=== PATIENT | female | born 1985 | race Two or more races ===

== ENCOUNTER → 2016-04-13 | Outpatient (CLI) | payer MEDICAID | END | disposition home or self-care (01) | LOC: LAB 08:21 | PROVIDERS: ATTEND Obstetrics & Gynecology | DX: O99.810 Abnormal glucose complicating pregnancy (principal); Z34.80 Encounter for supervision of other normal pregnancy, unspecified trimester | CPT/HCPCS: 36415; 82951 ==

== ENCOUNTER → 2016-04-21 | Outpatient (CLI) | payer MEDICAID ==
[2016-04-21 12:26] LABS: Basophils # (auto) 0 uL; Basophils % (auto) 0.3 % (0.0-2.0); Eosinophils # (auto) 0 uL; Eosinophils % (auto) 0.4 % (0.0-7.0); Hemoglobin 13.4 g/dL (12.2-16.2); Lymphocytes # (auto) 1.9 uL; Lymphocytes % (auto) 27.7 % (10.0-50.0); Mean Corpuscular Hemoglobin 30.3 pg (28.0-32.0); Mean Corpuscular Hgb Conc. 33.4 g/dL (32.0-36.0); Mean Corpuscular Volume 90.8 fL (80.0-100.0); Mean Platelet Volume 9.1 fL (7.4-10.4); Monocytes # (auto) 0.4 uL; Monocytes % (auto) 5.7 % (0.0-12.0); Neutrophils # (auto) 4.6 uL; Neutrophils % (auto) 65.9 % (37.0-80.0); Platelet Count (auto) 226 10^3/uL (140-450); Red Cell Distribution Width 13.8 % (11.6-16.0)
== END | disposition home or self-care (01) ==
LOC: LAB 11:58
PROVIDERS: ATTEND Obstetrics & Gynecology
DX: Z34.80 Encounter for supervision of other normal pregnancy, unspecified trimester (principal)
CPT/HCPCS: 36415; 83036; 85025; 85049

== ENCOUNTER 2016-05-06 14:45 | Observation (INO) | payer MEDICAID ==
[~2016-05-06] VITALS: Ht 157.5 cm; Wt 95.3 kg
[2016-05-06] MEDS ORDERED: TERBUTALINE SULFATE 1 MG/ML 1ML VIAL SC SCH (15:00)
[2016-05-06] MEDS ORDERED: BETAMETHASONE ACET (6MG/ML) 5ML VIAL IM SCH (15:30)
== END 2016-05-06 17:25 | disposition home or self-care (01) | DRG 563 ==
LOC: LDRP 14:45
PROVIDERS: ADMIT Obstetrics & Gynecology; ATTEND Obstetrics & Gynecology
DX: O60.00 Preterm labor without delivery, unspecified trimester (principal); Z3A.00 Weeks of gestation of pregnancy not specified
CPT/HCPCS: 59025; 81002; 96372; G0378; J0702; J3105

== ENCOUNTER 2016-05-07 15:00 | Observation (INO) | payer MEDICAID ==
[2016-05-07] MEDS ORDERED: BETAMETHASONE ACET (6MG/ML) 5ML VIAL IM ONE (15:30)
== END 2016-05-07 16:40 | disposition home or self-care (01) | DRG 566 ==
LOC: LDRP 15:00
PROVIDERS: ADMIT Obstetrics & Gynecology; ATTEND Obstetrics & Gynecology
DX: O24.410 Gestational diabetes mellitus in pregnancy, diet controlled (principal); Z3A.29 29 weeks gestation of pregnancy
CPT/HCPCS: 59025; 81002; 82962; 96372; G0378; J0702

== ENCOUNTER 2016-05-10 14:15 | Observation (INO) | payer MEDICAID | END 2016-05-10 15:30 | disposition home or self-care (01) | DRG 566 | LOC: LDRP 14:15 | PROVIDERS: ADMIT Specialist; ATTEND Specialist | DX: O13.3 Gestational [pregnancy-induced] hypertension without significant proteinuria, third trimester (principal); O24.410 Gestational diabetes mellitus in pregnancy, diet controlled; Z3A.30 30 weeks gestation of pregnancy | CPT/HCPCS: G0378 ==

== ENCOUNTER 2016-05-13 12:20 | Observation (INO) | payer MEDICAID ==
[2016-05-13 14:07] LABS: Urine Bilirubin Negative (Negative); Urine Color Yellow (Yellow); Urine Glucose Normal (Normal); Urine Ketone Negative (Negative); Urine Mucus FEW (None Seen); Urine Nitrite Negative (Negative); Urine RBC 3 /hpf (0 - 4); Urine Squamous Epithelial Cell MOD /hpf (<5); Urine pH 6.5 (5.0-8.0)
[2016-05-13 14:08] LABS: Urine Blood 1+ /uL (Negative)
== END 2016-05-13 13:24 | disposition home or self-care (01) | DRG 563 ==
LOC: LDRP 12:20
PROVIDERS: ADMIT Obstetrics & Gynecology; ATTEND Obstetrics & Gynecology
DX: O60.03 Preterm labor without delivery, third trimester (principal); Z3A.30 30 weeks gestation of pregnancy
CPT/HCPCS: 59025; 81001; 81002; G0378

== ENCOUNTER 2016-05-17 12:30 | Observation (INO) | payer MEDICAID | END 2016-05-17 13:50 | disposition home or self-care (01) | DRG 566 | LOC: LDRP 12:30 | PROVIDERS: ADMIT Specialist; ATTEND Specialist | DX: O24.410 Gestational diabetes mellitus in pregnancy, diet controlled (principal); Z3A.33 33 weeks gestation of pregnancy | CPT/HCPCS: 59025; 81002; G0378 ==

== ENCOUNTER 2016-05-20 11:55 | Observation (INO) | payer MEDICAID | END 2016-05-20 13:30 | disposition home or self-care (01) | DRG 566 | LOC: LDRP 11:55 | PROVIDERS: ADMIT Obstetrics & Gynecology; ATTEND Obstetrics & Gynecology | DX: O26.893 Other specified pregnancy related conditions, third trimester (principal); O62.9 Abnormality of forces of labor, unspecified; M54.9 Dorsalgia, unspecified; Z3A.31 31 weeks gestation of pregnancy | CPT/HCPCS: 59025; 81002; G0378 ==

== ENCOUNTER 2016-05-24 12:00 | Observation (INO) | payer MEDICAID | END 2016-05-24 12:50 | disposition home or self-care (01) | DRG 566 | LOC: LDRP 12:00 | PROVIDERS: ADMIT Specialist; ATTEND Specialist | DX: O24.419 Gestational diabetes mellitus in pregnancy, unspecified control (principal); O60.03 Preterm labor without delivery, third trimester; Z3A.32 32 weeks gestation of pregnancy | CPT/HCPCS: 59025; 81002; G0378 ==

== ENCOUNTER 2016-05-27 12:10 | Observation (INO) | payer MEDICAID | END 2016-05-27 13:10 | disposition home or self-care (01) | DRG 566 | LOC: LDRP 12:10 | PROVIDERS: ADMIT Specialist; ATTEND Specialist | DX: O24.419 Gestational diabetes mellitus in pregnancy, unspecified control (principal); O60.03 Preterm labor without delivery, third trimester; Z3A.32 32 weeks gestation of pregnancy | CPT/HCPCS: 59025; 81002; 82962; G0378 ==

== ENCOUNTER 2016-05-31 12:05 | Observation (INO) | payer MEDICAID | END 2016-05-31 13:45 | disposition home or self-care (01) | DRG 566 | LOC: LDRP 12:05 | PROVIDERS: ADMIT Specialist; ATTEND Specialist | DX: O36.8130 Decreased fetal movements, third trimester, not applicable or unspecified (principal); O24.419 Gestational diabetes mellitus in pregnancy, unspecified control; Z3A.33 33 weeks gestation of pregnancy | CPT/HCPCS: 59025; 76818; 81002; 82962; G0378 ==

== ENCOUNTER 2016-06-04 13:05 | Observation (INO) | payer MEDICAID | END 2016-06-04 14:10 | disposition home or self-care (01) | DRG 566 | LOC: LDRP 13:05 | PROVIDERS: ADMIT Obstetrics & Gynecology; ATTEND Obstetrics & Gynecology | DX: O76 Abnormality in fetal heart rate and rhythm complicating labor and delivery (principal); Z3A.33 33 weeks gestation of pregnancy | CPT/HCPCS: 59025; 76818; 81002; G0378 ==

== ENCOUNTER 2016-06-08 10:20 | Observation (INO) | payer MEDICAID ==
[~2016-06-08] VITALS: Ht 157.5 cm; Wt 97.5 kg
[2016-06-08] MEDS ORDERED: NIF10C PO (10:38)
[2016-06-08] MEDS ORDERED: PREN1TAB30 PO (10:41)
== END 2016-06-08 11:45 | disposition home or self-care (01) | DRG 566 ==
LOC: LDRP 10:20
PROVIDERS: ADMIT Obstetrics & Gynecology; ATTEND Obstetrics & Gynecology
DX: O24.419 Gestational diabetes mellitus in pregnancy, unspecified control (principal); O40.3XX0 Polyhydramnios, third trimester, not applicable or unspecified; O62.9 Abnormality of forces of labor, unspecified; Z3A.34 34 weeks gestation of pregnancy
CPT/HCPCS: 59025; 76818; 81002; 82962; G0378

== ENCOUNTER 2016-06-11 12:23 | Observation (INO) | payer MEDICAID ==
[~2016-06-11 12:23] MED LIST: NIF10C PO; PREN1TAB30 PO
== END 2016-06-11 14:55 | disposition home or self-care (01) | DRG 566 ==
LOC: LDRP 12:23
PROVIDERS: ADMIT Obstetrics & Gynecology; ATTEND Obstetrics & Gynecology
DX: O26.893 Other specified pregnancy related conditions, third trimester (principal); O24.419 Gestational diabetes mellitus in pregnancy, unspecified control; Z3A.34 34 weeks gestation of pregnancy
CPT/HCPCS: 59025; 76818; 81002; G0378

== ENCOUNTER 2016-06-14 12:15 | Observation (INO) | payer MEDICAID | END 2016-06-14 13:35 | disposition home or self-care (01) | DRG 566 | LOC: LDRP 12:15 | PROVIDERS: ADMIT Obstetrics & Gynecology; ATTEND Obstetrics & Gynecology | DX: O24.419 Gestational diabetes mellitus in pregnancy, unspecified control (principal); O60.03 Preterm labor without delivery, third trimester; O40.3XX0 Polyhydramnios, third trimester, not applicable or unspecified; O62.9 Abnormality of forces of labor, unspecified; Z3A.35 35 weeks gestation of pregnancy | CPT/HCPCS: 76818; 82962; G0378; 59025; 81002 ==

== ENCOUNTER 2016-06-17 15:10 | Observation (INO) | payer MEDICAID | END 2016-06-17 17:00 | disposition home or self-care (01) | DRG 566 | LOC: LDRP 15:10 | PROVIDERS: ADMIT Obstetrics & Gynecology; ATTEND Obstetrics & Gynecology | DX: O24.419 Gestational diabetes mellitus in pregnancy, unspecified control (principal); O60.03 Preterm labor without delivery, third trimester; Z3A.35 35 weeks gestation of pregnancy | CPT/HCPCS: 59025; 76818; 81002; G0378 ==

== ENCOUNTER → 2016-06-18 | Outpatient (CLI) | payer MEDICAID ==
[2016-06-18 13:44] LABS: Basophils # (auto) 0 uL; Basophils % (auto) 0.3 % (0.0-2.0); Eosinophils # (auto) 0 uL; Eosinophils % (auto) 0.3 % (0.0-7.0); Hematocrit 37.5 % (36.0-46.0); Hemoglobin 12.8 g/dL (12.2-16.2); Lymphocytes # (auto) 1.7 uL; Lymphocytes % (auto) 28.3 % (10.0-50.0); Mean Corpuscular Hemoglobin 31.1 pg (28.0-32.0); Mean Corpuscular Hgb Conc. 34.1 g/dL (32.0-36.0); Mean Corpuscular Volume 91.1 fL (80.0-100.0); Mean Platelet Volume 9.5 fL (7.4-10.4); Monocytes # (auto) 0.4 uL; Monocytes % (auto) 6.9 % (0.0-12.0); Neutrophils % (auto) 64.2 % (37.0-80.0); Platelet Count (auto) 184 10^3/uL (140-450); Red Cell Distribution Width 13.9 % (11.6-16.0); White Blood Cell 6.2 10^3/uL (4.4-10.8)
== END | disposition home or self-care (01) ==
LOC: LAB 13:21
PROVIDERS: ATTEND Obstetrics & Gynecology
DX: Z34.80 Encounter for supervision of other normal pregnancy, unspecified trimester (principal); Z11.3 Encounter for screening for infections with a predominantly sexual mode of transmission
CPT/HCPCS: 36415; 85025; 86592

== ENCOUNTER 2016-06-22 12:05 | Observation (INO) | payer MEDICAID | END 2016-06-22 13:30 | disposition home or self-care (01) | DRG 566 | LOC: LDRP 12:05 | PROVIDERS: ADMIT Specialist; ATTEND Specialist | DX: O24.419 Gestational diabetes mellitus in pregnancy, unspecified control (principal); O10.913 Unspecified pre-existing hypertension complicating pregnancy, third trimester; O99.513 Diseases of the respiratory system complicating pregnancy, third trimester; J02.9 Acute pharyngitis, unspecified; H92.09 Otalgia, unspecified ear; Z3A.36 36 weeks gestation of pregnancy | CPT/HCPCS: 76818; G0378; 59025; 81002 ==

== ENCOUNTER 2016-06-24 11:45 | Observation (INO) | payer MEDICAID | END 2016-06-24 14:05 | disposition home or self-care (01) | DRG 566 | LOC: LDRP 11:45 | PROVIDERS: ADMIT Obstetrics & Gynecology; ATTEND Obstetrics & Gynecology | DX: O24.410 Gestational diabetes mellitus in pregnancy, diet controlled (principal); O62.9 Abnormality of forces of labor, unspecified; Z3A.36 36 weeks gestation of pregnancy | CPT/HCPCS: 59025; 76818; 81002; G0378 ==

== ENCOUNTER 2016-06-28 11:55 | Observation (INO) | payer MEDICAID | END 2016-06-28 13:13 | disposition home or self-care (01) | DRG 566 | LOC: LDRP 11:55 | PROVIDERS: ADMIT Obstetrics & Gynecology; ATTEND Obstetrics & Gynecology | DX: O24.419 Gestational diabetes mellitus in pregnancy, unspecified control (principal); O62.9 Abnormality of forces of labor, unspecified; Z3A.37 37 weeks gestation of pregnancy | CPT/HCPCS: 59025; 76818; 81002; G0378 ==

== ENCOUNTER 2016-07-10 11:00 | Observation (INO) | payer MEDICAID | END 2016-07-10 13:15 | disposition home or self-care (01) | DRG 566 | LOC: LDRP 11:00 | PROVIDERS: ADMIT Specialist; ATTEND Specialist | DX: O24.419 Gestational diabetes mellitus in pregnancy, unspecified control (principal); Z3A.39 39 weeks gestation of pregnancy | CPT/HCPCS: 59025; 76805; 76818; 81002; 82962; G0378 ==

== ENCOUNTER 2023-03-24 07:55 | Emergency (ER) | payer MEDICAID ==
[~2023-03-24] VITALS: Ht 157.5 cm; Wt 97.4 kg
[2023-03-24 08:18] VITALS: RESP 16; O2SAT 96
[2023-03-24 08:40] VITALS: RESP 15; O2SAT 97
[2023-03-24 08:41] VITALS: BP 153/93; PULSE 87; RESP 18; TEMP 97.3; O2SAT 97
[2023-03-24] MEDS ORDERED: BENZ200C64 PO (08:43)
[2023-03-24] MEDS ORDERED: AUG875T PO (08:43)
[2023-03-24] MEDS ORDERED: ACET-1304 PO (08:43)
== END 2023-03-24 08:52 | disposition home or self-care (01) ==
LOC: ER 07:55
DX: H66.92 Otitis media, unspecified, left ear (principal); J20.9 Acute bronchitis, unspecified
CPT/HCPCS: 71045